=== PATIENT | female | born 1980 | race Caucasian/White ===

== ENCOUNTER 2017-05-04 10:26 | Emergency (ER) | payer OTHER ==
[~2017-05-04] VITALS: Ht 177.8 cm; Wt 87.0 kg
[2017-05-04] MEDS ORDERED: SODIUM CHLORIDE FLUSH 10ML SYR IVF ONE (13:00)
[2017-05-04 13:20] LABS: HEMATOCRIT 33.6 % (34.6-47.8); WHITE BLOOD COUNT 8.6 x10^3/uL (3.4-10)
[2017-05-04 13:30] LABS: ASPARTATE AMINO TRANSFERASE 17 U/L (15-37); BLOOD UREA NITROGEN 13 mg/dL (7-18)
[2017-05-04 13:36] LABS: IS PT STATUS REG ER OR PRE ER? YES
[2017-05-04 14:03] VITALS: BP 115/68
== END 2017-05-04 14:04 | disposition home or self-care (01) ==
LOC: ED 13:25
DX: F45.8 Other somatoform disorders (principal); R06.00 Dyspnea, unspecified
CPT/HCPCS: 36415; 71010; 80053; 83880; 84439; 84443; 84484; 85025; 85379; 93005